=== PATIENT | male | born 1975 | race American Indian/Alaskan Native ===

== ENCOUNTER 2021-10-23 13:15 | Emergency (ER) | payer SELFPAY ==
[2021-10-23] MEDS ORDERED: ONDANSETRON 4 MG/2 ML INJ ONE (13:18)
[2021-10-23] MEDS ORDERED: ONDANSETRON 4 MG/2 ML INJ IV SCH (13:21)
[2021-10-23] MEDS ORDERED: SODIUM CHLORIDE 0.9% 1000 ML 1,000 ML IV ONE ×2 (13:30→13:39)
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
--- NOTE | 2021-10-23 13:56 | XRay Report ---
CHEST 1 VIEW INDICATION: altered mental status. COMPARISON: 10/09/2021 FINDINGS: Support devices: None. Heart: Normal. Lungs/Pleura: No acute pulmonary or pleural findings. IMPRESSION: 1. No acute findings. Signer Name: Fito Lane MD Signed: 10/23/2021 1:52 PM Workstation Name: [id number]
[2021-10-23] MEDS ORDERED: NALOXONE 2 MG/2 ML INJ IV SCH (14:00)
--- NOTE | 2021-10-23 14:12 | Cat Scan Report ---
CT HEAD WITHOUT CONTRAST INDICATION / CLINICAL INFORMATION: unresponsive; eval for acute intracranial hemorrha. TECHNIQUE: All CT scans at this location are performed using CT dose reduction for ALARA by means of automated exposure control. COMPARISON: None available. FINDINGS: HEMORRHAGE: None. EXTRA-AXIAL SPACES: Normal in size and morphology for the patient's age. VENTRICULAR SYSTEM: Normal in size and morphology for the patient's age. CEREBRAL PARENCHYMA: No significant abnormality. No acute territorial infarct. MIDLINE SHIFT / HERNIATION: None. CEREBELLUM / BRAINSTEM: No significant abnormality. ORBITS: Normal as visualized. SOFT TISSUES: No significant abnormality. SKULL: No significant abnormality. PARANASAL SINUSES / MASTOID AIR CELLS: Normal as visualized. ADDITIONAL FINDINGS: None. IMPRESSION: 1. No acute intracranial abnormality. Signer Name: Fito Lane MD Signed: 10/23/2021 2:08 PM Workstation Name: [id number]
--- NOTE | 2021-10-23 14:20 | Cat Scan Report ---
CT CERVICAL SPINE WITHOUT CONTRAST INDICATION: unresponsiveness; found on ground; r/o cspine fx. TECHNIQUE: Axial CT images of the spine were obtained. Sagittal and coronal reformatted images were produced. Al l CT scans at this location are performed using CT dose reduction for ALARA by means of automated exp osure control. COMPARISON: CT 01/02/2021 FINDINGS: ACUTE FRACTURE(S) OR SUBLUXATION: None. SPINAL DEGENERATIVE CHANGES: There is mild discogenic degenerative change at C5-6, C6-7, and C7-T1. PARASPINAL SOFT TISSUES: No soft tissue swelling or other acute abnormalities. ADDITIONAL FINDINGS: No significant additional findings. IMPRESSION: 1. No acute fracture or subluxation in the spine in neutral position. Signer Name: Fito Lane MD Signed: 10/23/2021 2:16 PM Workstation Name: [id number]
[2021-10-23] MEDS ORDERED: LORazepam 2 MG/ML VIAL ONE (14:38)
[2021-10-23 14:46] LABS: Amphetamine Screen,Urine Negative; Benzodiazepines Screen,Urine Negative; Cannabinoid Screen,Urine Negative; Cocaine Screen,Urine Negative; Methadone Screen,Urine Negative; Opiate Screen,Urine Negative
[2021-10-23] MEDS: LORazepam 2 MG/ML VIAL IV ONE ×2 (14:58→16:20)
[2021-10-23 15:08] LABS: Basophils # (Auto) 0.1 K/mm3 (0.0-0.1); Basophils % (Auto) 1.2 % (0.0-1.8); Eosinophils # (Auto) 0.2 K/mm3 (0.0-0.4); Eosinophils % (Auto) 3.6 % (0.0-4.3); Hematocrit 43.5 % (35.5-45.6); Hemoglobin 14.9 gm/dl (11.8-15.2); Lymphocytes # (Auto) 2.8 K/mm3 (1.2-5.4); Lymphocytes % (Auto) 51.2 % (13.4-35.0); Mean Corpuscular HGB Conc 34 % (32-34); Mean Corpuscular Volume 101 fl (84-94); Monocytes # (Auto) 0.3 K/mm3 (0.0-0.8); Monocytes % (Auto) 5.1 % (0.0-7.3); Platelet Count 261 K/mm3 (140-440); Red Cell Distribution Width 13.2 % (13.2-15.2)
[2021-10-23 15:28] LABS: Alanine Aminotransferase 21 units/L (7-56); Albumin 4.3 g/dL (3.9-5); Blood Urea Nitrogen 7 mg/dL (9-20); Calcium 8.9 mg/dL (8.4-10.2); Hemolysis Index 10
[2021-10-23 15:31] LABS: BUN/Creatinine Ratio 10; Bilirubin,Direct < 0.2 mg/dL (0-0.2)
--- NOTE | 2021-10-23 16:34 | Cat Scan Report ---
CTA CHEST WITH CONTRAST INDICATION / CLINICAL INFORMATION: Persistent hypoxemia, altered mental status; r/oPE. TECHNIQUE: Axial CT images were obtained through the chest after injection of IV contrast. 3 plane LA P and/or 3D reconstructions were produced. All CT scans at this location are performed using CT dose reduction for ALARA by means of automated exposure control. COMPARISON: None available. FINDINGS: PULMONARY EMBOLUS: None. THORACIC AORTA: No significant abnormality. HEART: No significant abnormality. CORONARY ARTERY CALCIFICATION: Absent -- None. MEDIASTINUM / KENNEDY: No significant abnormality. PLEURA: No pleural effusion. No pneumothorax. LUNGS: No acute air space or interstitial disease. There is a 4 mm subpleural nodule in the anterior right upper lobe on axial image 75. There is a 3 mm lingular nodule on image 64. ADDITIONAL FINDINGS: None. UPPER ABDOMEN: No acute findings. SKELETAL STRUCTURES: No significant osseous abnormality. IMPRESSION: 1. No CT evidence for pulmonary embolism. 2. No acute findings. 3. Multiple incidental pulmonary nodule(s), the larger in the right upper lobe measures 4 mm with dada id characteristics. - Recommendation according to Fleischner Society 2017 Guidelines: Low Risk Patient: No routine follow -up; High Risk Patient: Optional CT at 12 months. Signer Name: Fito Lane MD Signed: 10/23/2021 4:30 PM Workstation Name: [email or web address]
[2021-10-23 16:56] LABS: ABG Base Excess -2.6 mmol/L (-2.0-3.0); ABG HCO3 24.7 mmol/L (20.0-26.0); ABG Methemoglobin 0.5 % (0.0-1.5); ABG Oxygen Saturation 98.2 % (95.0-99.0); ABG PCO2 53.1 mm Hg; ABG PH 7.287 pH Units (7.350-7.450); ABG PO2 124.9 mm Hg (80.0-90.0)
--- NOTE | 2021-10-23 17:20 | XRay Report ---
PELVIS 2 VIEW(S) INDICATION / CLINICAL INFORMATION: unresponsive; fall; r/o pelvic fx COMPARISON: None available. FINDINGS: BONES / JOINT(S): No acute fracture or subluxation. No significant arthritis. SOFT TISSUES: No significant abnormality. ADDITIONAL FINDINGS: Excreted intravenous contrast is noted in the bladder. IMPRESSION: 1. No acute findings. Signer Name: Fito Lane MD Signed: 10/23/2021 5:16 PM Workstation Name: [id number]
[2021-10-24 00:13] VITALS: BP 110/77
--- NOTE | 2021-10-25 10:14 | Electrocardiograph Report ---
[facility] Test Date: 2021-10-23 Test Time: 14:33:07 Pat Name: NIEVES DANIELS Department: Room: Gender: M Baker Head: PATRICIA : 1975 Requested By: PATRICK SAAVEDRA Order Number: [id number] Reading MD: Guilherme Cope Measurements Intervals [place] Rate: 84 P: 20 NH: 172 QRS: -33 QRSD: 99 T: 46 QT: 386 QTc: 457 Interpretive Statements Sinus rhythm Left axis deviation No previous ECG available for comparison Electronically Signed On 10-25-2021 10:14:44 EDT by Guilherme Cope
== END 2021-10-24 05:55 | disposition home or self-care (01) ==
LOC: EDBD 13:15 → ED 13:15
DX: F10.129 Alcohol abuse with intoxication, unspecified (principal); R91.1 Solitary pulmonary nodule; R41.82 Altered mental status, unspecified
CPT/HCPCS: 36415; 70450; 71045; 71275; 72125; 72170; 80048; 80076; 80307; 82803; 82962; 83880; 84484; 85025; 93005; 96361; 96374; 96375; 99285; J2060; J2310; J2405; J7030; Q9967; 80320; G0480